=== PATIENT | male | born 1965 | race African-American/Black ===

== ENCOUNTER 2024-08-08 08:43 | Day surgery (SDC) | payer BC ==
[2024-08-06 14:10] VITALS: BMI 28.1
[2024-08-08 10:34] VITALS: TEMP 97.8
[2024-08-08 10:41] VITALS: BP 122/81; PULSE 85; RESP 19
== END 2024-08-08 10:50 | disposition home or self-care (01) ==
LOC: FASU-ENDO 08:43
PROVIDERS: ATTEND Internal Medicine Gastroenterology
PROC: 0DBL8ZX Excision of Transverse Colon, Via Natural or Artificial Opening Endoscopic, Diagnostic (ICD-10-PCS; 2024-08-08)
PROC: 0DBK8ZX Excision of Ascending Colon, Via Natural or Artificial Opening Endoscopic, Diagnostic (ICD-10-PCS; principal; 2024-08-08 09:50)
DX: Z12.11 Encounter for screening for malignant neoplasm of colon (principal)
CPT/HCPCS: 88305-TC